=== PATIENT | female | born 1990 | race Two or more races ===

== ENCOUNTER 2017-05-03 16:48 | Emergency (ER) | payer MEDICAID ==
[~2017-05-03] VITALS: Ht 170.2 cm; Wt 70.3 kg
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
--- NOTE | 2017-05-03 17:06 | NUR ---
URINE SAMPLE COLLECTED SENT TO LAB
--- NOTE | 2017-05-03 17:26 | NUR ---
PT BACK FROM CT
--- NOTE | 2017-05-03 17:50 | NUR ---
Patient discharged to home in stable condition. Written and verbal after care instructions given. Patient verbalizes understanding of instruction.
[2017-05-03 17:51] VITALS: BP 125/75
== END 2017-05-03 17:51 | disposition home or self-care (01) ==
LOC: ER 16:51
DX: S13.4XXA Sprain of ligaments of cervical spine, initial encounter (principal); V49.50XA Passenger injured in collision with unspecified motor vehicles in traffic accident, initial encounter; Y92.89 Other specified places as the place of occurrence of the external cause; Y93.89 Activity, other specified; Y99.9 Unspecified external cause status
CPT/HCPCS: 72050-TC; 84703-TC; A4606; Z7610

== ENCOUNTER 2018-10-31 13:00 | Emergency (ER) | payer MEDICAID ==
[~2018-10-31] VITALS: Ht 170.2 cm; Wt 78.0 kg
[2018-10-31 13:00] VITALS: BP 124/61
== END 2018-10-31 14:04 | disposition home or self-care (01) ==
LOC: ER 13:02
DX: S13.4XXA Sprain of ligaments of cervical spine, initial encounter (principal); V49.59XA Passenger injured in collision with other motor vehicles in traffic accident, initial encounter; Y93.89 Activity, other specified; Y92.413 State road as the place of occurrence of the external cause; Y99.8 Other external cause status
CPT/HCPCS: 99281; A4606; Z7610; Z7502